=== PATIENT | female | born 1975 | race African-American/Black ===

== ENCOUNTER 2018-03-17 12:48 | Outpatient (CLI) | payer BC, OTHER ==
--- NOTE | 2018-03-21 15:33 | MMO ---
BILATERAL SCREENING MAMMOGRAM: Date: 03/17/18 COMPARISON: 05/24/13, 06/11/14, 09/17/15. HISTORY: Annual screening exam. This patient's mammogram was interpreted with the assistance of computer-aided detection. FINDINGS: Scattered fibroglandular changes of both breasts are present. There is no dominant mass, suspicious c alcification, or other sign of malignancy. IMPRESSION: BIRADS 1: Negative POS: KHOI
== END 2018-03-17 12:49 | disposition home or self-care (01) ==
LOC: SCSMAMMO 12:48
PROVIDERS: ATTEND Student in an Organized Health Care Education/Training Program
DX: Z12.31 Encounter for screening mammogram for malignant neoplasm of breast (principal)
CPT/HCPCS: 77067

== ENCOUNTER 2019-09-21 09:38 | Outpatient (CLI) | payer OTHER ==
--- NOTE | 2019-09-21 09:55 | RAD ---
EXAM: Chest Two Views 09/21/2019 9:53 AM HISTORY: Hypertension COMPARISON: None. FINDINGS: Heart: Moderate cardiomegaly Pulmonary vessels: Normal. Costophrenic angles: Clear. Lungs: No acute airspace consolidation. Pneumothorax: None. Osseous structures:There is scattered degenerative and osteoarthritic change present. No acute fractu re or subluxation demonstrated. Additional findings: None. IMPRESSION: Moderate cardiomegaly
== END 2019-09-21 09:39 | disposition home or self-care (01) ==
LOC: BICRAD 09:38
PROVIDERS: ATTEND Internal Medicine
DX: I11.9 Hypertensive heart disease without heart failure (principal)
CPT/HCPCS: 71046

== ENCOUNTER 2019-09-29 19:30 | Outpatient (CLI) | payer OTHER | END 2019-09-29 19:31 | disposition home or self-care (01) | LOC: SLEEPLAB 19:30 | PROVIDERS: ATTEND Internal Medicine | DX: G47.33 Obstructive sleep apnea (adult) (pediatric) (principal); R53.83 Other fatigue; E66.9 Obesity, unspecified; R06.83 Snoring; I10 Essential (primary) hypertension; E11.9 Type 2 diabetes mellitus without complications; R51 Headache; K21.9 Gastro-esophageal reflux disease without esophagitis | CPT/HCPCS: 95811 ==

== ENCOUNTER 2019-11-24 05:27 | Outpatient (CLI) | payer OTHER ==
[2019-11-24 18:11] LABS: Hemoglobin 10.4 g/dL (12.0-16.0); Mean Corpuscular HGB CONC 31.4 g/dL (32.0-36.0); Mean Corpuscular Volume 70.1 fL (78.0-98.0); Mean Platelet Volume 9.4 fL (7.4-10.4); Platelet Count 325 thou/uL (130-400); RBC Distribution Width 15.4 % (11.5-14.5); Red Blood Cell (RBC) Count 4.74 mill/uL (4.20-5.40); White Blood Cell (WBC) Count 7.9 thou/uL (4.8-10.8)
[2019-11-24 18:22] LABS: BHCG - Serum Negative (NEGATIVE); Pregs Control Background? CLEAR/WHITE (CLR/WHITE); Pregs Control Bar Appear? YES (CONTROL BAR)
[2019-11-24 18:33] LABS: ALT (SGPT) 10 U/L (8-55); AST (SGOT) 17 U/L (5-34); Albumin 4.1 g/dL (3.5-5.0); Alkaline Phosphatase 85 U/L (40-110); Anion Gap 12 mmol/L (10-20); BUN (Urea Nitrogen) 16 mg/dL (7.0-18.7); Bilirubin, Direct 0.2 mg/dL (0.1-0.3); Bilirubin, Total 0.4 mg/dL (0.2-1.2); Calc. Creatinine Clearance 0 mL/min (70-130); Calcium 9.3 mg/dL (7.8-10.44); Carbon Dioxide 30 mmol/L (22-29); Chloride 103 mmol/L (98-107); Estimated GFR-MDRD 62; Globulin 2.8 g/dL (2.4-3.5); Glucose 77 mg/dL (70-105); Potassium 3.5 mmol/L (3.5-5.1); Protein, Total 6.9 g/dL (6.0-8.3); Sodium 141 mmol/L (136-145)
== END 2019-11-24 05:28 | disposition home or self-care (01) ==
LOC: LABBT 05:27
PROVIDERS: ATTEND Student in an Organized Health Care Education/Training Program
DX: Z01.818 Encounter for other preprocedural examination (principal); N92.0 Excessive and frequent menstruation with regular cycle; R10.2 Pelvic and perineal pain
CPT/HCPCS: 80053; 80076; 84703; 85027; 86850; 86900; 86901

== ENCOUNTER 2019-11-27 08:45 | Day surgery (SDC) | payer OTHER ==
[2019-11-24 17:52] VITALS: BMI 46.0
[2019-11-27] MEDS ORDERED: Lidocaine 1% w/Epinephrine 1:100K 20 ML VIAL ONE (09:37)
[2019-11-27] MEDS ORDERED: Bupivacaine PF 0.5% 30 ML VIAL ONE (09:37)
[2019-11-27] MEDS ORDERED: HYDROmorphone 0.5 MG/0.5 ML SYRINGE ONE ×2 (09:44→09:45)
[2019-11-27] MEDS ORDERED: Fentanyl 100 MCG/2 ML VIAL ONE ×3 (09:44→13:06)
[2019-11-27] MEDS ORDERED: Famotidine/PF 20 mg/2ml Vial ONE (10:18)
[2019-11-27] MEDS ORDERED: Gabapentin 300 MG CAP ONE (10:18)
[2019-11-27] MEDS ORDERED: CeleCOXIB 100 MG CAP ONE (10:18)
[2019-11-27] MEDS ORDERED: Midazolam HCl 2 mg/2 ml Vial ONE (10:19)
[2019-11-27] MEDS ORDERED: SUGAMMADEX SODIUM 500 MG/5 ML VIAL ONE (11:18)
[2019-11-27] MEDS ORDERED: Simethicone Chewable 80 MG TAB PO PRN (12:24)
[2019-11-27] MEDS ORDERED: diphenhydrAMINE 25 MG CAP PO PRN (12:24)
[2019-11-27] MEDS ORDERED: Dextrose 50% Abboject 50 ML SYRINGE SLOW IVP PRN (12:24)
[2019-11-27] MEDS ORDERED: Insulin Regular 300 UNITS/3 ML VIAL SC PRN (12:24)
[2019-11-27] MEDS ORDERED: Fentanyl 100 MCG/2 ML VIAL SLOW IVP PRN (12:24)
[2019-11-27] MEDS ORDERED: Zolpidem Tartrate 5 MG TAB PO PRN (12:24)
[2019-11-27] MEDS ORDERED: Ondansetron PF 4 MG/2 ML Vial IVP PRN (12:24)
[2019-11-27] MEDS ORDERED: Promethazine HCl 25 MG/ML VIAL IM PRN (12:24)
[2019-11-27] MEDS ORDERED: HYDROcodone/Acetaminophen 5/325 mg Tablet PO PRN (12:24)
[2019-11-27] MEDS ORDERED: Bisacodyl 10 MG SUPP PR PRN (12:24)
[2019-11-27] MEDS ORDERED: Dextrose 5% in Water 1,000 ML IV PRN (12:24)
[2019-11-27] MEDS ORDERED: Metoprolol Tartrate 5 MG/5 ML VIAL IVP PRN (12:32)
[2019-11-27] MEDS ORDERED: Meperidine HCl/PF 25 MG/ML VIAL SLOW IVP PRN (12:39)
[2019-11-27] MEDS ORDERED: HYDROmorphone 2 MG/ML VIAL SLOW IVP PRN (12:39)
[2019-11-27] MEDS ORDERED: Promethazine HCl 25 MG/ML VIAL SLOW IVP PRN (12:39)
[2019-11-27] MEDS ORDERED: valACYclovir 500 MG TAB PO SCH (12:45)
[2019-11-27] MEDS ORDERED: Rocuronium Bromide 10 MG/ML (10ML VIAL) ONE (14:33)
[2019-11-27] MEDS ORDERED: PROPOFOL 200 MG/20 ML VIAL ONE (14:33)
[2019-11-27] MEDS ORDERED: Dexamethasone 20 MG/5 ML VIAL ONE (14:33)
[2019-11-27] MEDS ORDERED: EPHEDRINE 25 MG/5 ML SYRINGE ONE (14:33)
[2019-11-27] MEDS ORDERED: Lidocaine 1% PF 5 ML VIAL ONE (14:33)
[2019-11-27] MEDS ORDERED: Ondansetron PF 4 MG/2 ML Vial ONE (14:33)
[2019-11-27] MEDS ORDERED: PHENYLEPHRINE-NS 100 MCG/ML 10 ML SYRINGE ONE (14:33)
[2019-11-27] MEDS ORDERED: Ketorolac Tromethamine 30 MG/ML VIAL IVP SCH (18:00)
[2019-11-27] MEDS: Sodium Chloride 0.9% 1,000 ML IV SCH ×2 (18:31→21:01)
[2019-11-27] MEDS: Ketorolac Tromethamine 30 MG/ML VIAL IVP SCH ×2 (18:32→23:35)
[2019-11-27] MEDS: Amlodipine 5 MG TAB PO SCH (20:04)
[2019-11-27] MEDS: HYDROcodone/Acetaminophen 5/325 mg Tablet PO PRN (20:04)
[2019-11-27] MEDS ORDERED: Atorvastatin Calcium 10 MG TAB PO SCH (21:00)
[2019-11-28] MEDS ORDERED: Ibuprofen 800 MG TAB PO SCH (06:00)
[2019-11-28] MEDS: Sodium Chloride 0.9% 1,000 ML IV SCH (06:01)
[2019-11-28 06:19] LABS: Anion Gap 11 mmol/L (10-20); BUN (Urea Nitrogen) 17 mg/dL (7.0-18.7); Calc. Creatinine Clearance 118 mL/min (70-130); Calcium 8.4 mg/dL (7.8-10.44); Carbon Dioxide 24 mmol/L (22-29); Chloride 105 mmol/L (98-107); Estimated GFR-MDRD 57; Glucose 134 mg/dL (70-105); Hemoglobin 9.2 g/dL (12.0-16.0); Mean Corpuscular HGB CONC 29.9 g/dL (32.0-36.0); Mean Corpuscular Hemoglobin 21.2 pg (27.0-31.0); Mean Corpuscular Volume 70.7 fL (78.0-98.0); Mean Platelet Volume 9.2 fL (7.4-10.4); Platelet Count 298 thou/uL (130-400); Potassium 3.9 mmol/L (3.5-5.1); RBC Distribution Width 15.5 % (11.5-14.5); Red Blood Cell (RBC) Count 4.34 mill/uL (4.20-5.40); Sodium 136 mmol/L (136-145); White Blood Cell (WBC) Count 13.1 thou/uL (4.8-10.8)
[2019-11-28] MEDS ORDERED: Ibuprofen 600 MG TAB PO SCH ×2 (08:00→14:00)
[2019-11-28] MEDS ORDERED: metFORMIN 500 MG TAB PO SCH (08:00)
[2019-11-28 08:03] VITALS: BP 148/70; TEMP 98.5
[2019-11-28] MEDS: HYDROcodone/Acetaminophen 5/325 mg Tablet PO PRN (08:33)
[2019-11-28] MEDS ORDERED: Hydrochlorothiazide 25 MG TAB PO SCH (09:00)
[2019-11-28] MEDS ORDERED: Losartan/Hydrochlorothiazide 100 mg/25 mg Tablet PO SCH (09:00)
[2019-11-28] MEDS: Amlodipine 5 MG TAB PO SCH (09:12)
--- NOTE | 2019-11-29 11:51 | OP ---
DATE OF PROCEDURE: 11/27/2019 PREOPERATIVE DIAGNOSES: 1. Menorrhagia. 2. Anemia. 3. Pelvic pain. 4. Fibroids. POSTOPERATIVE DIAGNOSES: 1. Menorrhagia. 2. Anemia. 3. Pelvic pain. 4. Fibroids. 5. Endometriosis. PROCEDURES PERFORMED: Robotic-assisted total laparoscopic hysterectomy and bilateral salpingectomy. ANESTHESIA: General endotracheal. PROPELLANT ASSEMBLER SURGEON: Lorri Davis PA-C ESTIMATED BLOOD LOSS: 30 mL. IVF: 1 L. URINE OUTPUT: 650 mL clear urine. COMPLICATIONS: None. DRAINS: Lock catheter. PATHOLOGY: Uterus, cervix, and bilateral fallopian tubes. FINDINGS: Enlarged 12-week size uterus sounded to 9 cm. Normal-appearing cervix and vagina. 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 The fallopian tubes were normal. Ovaries were normal bilaterally. Small amount of endometriosis in the right side of the pelvis. Excellent hemostasis noted. Ureters were noted bilaterally, dissected out in the retroperitoneum and lateral from the surgical site. DESCRIPTION OF PROCEDURE: The patient was taken to the operating room, where general anesthesia was obtained without difficulty. The patient was prepped and draped in a sterile fashion in dorsal lithotomy position. Lock catheter was placed in the bladder. A speculum was placed in the vagina. Anterior lip of the cervix was grasped with a single-tooth tenaculum. The cervix was then dilated with Nirmal dilators, and the uterus sounded to 9 cm. The FRIEDA manipulator was assembled with 4 cm colpotomizer ring and 8 cm tip. The FRIEDA manipulator was inserted into the uterus. The speculum and tenaculum were removed out of the vagina. Legs were placed in low lithotomy. Balloons were inflated, and attention was turned to the abdomen. A mixture of 0.5% Marcaine plain and 1% lidocaine with epinephrine was infiltrated into the umbilicus, and a 12 mm skin incision was made in the umbilicus. The Veress needle was passed into the abdomen noting an opening pressure of 6 mmHg, and pneumoperitoneum was obtained without difficulty. The Veress needle was removed, and the 12 mm trocar was advanced into the abdomen and confirmed placement with the camera. Trendelenburg was obtained. Right and left lower quadrant 8 mm robotic trocars were placed under direct visualization after infiltrating with anesthetic, and an 11 mm plant attendant or assistant operator port was placed in the right upper quadrant under direct visualization as well. After infiltrating with anesthetic, the robot was then docked. The right robotic arm contained monopolar scissors. Left robotic arm contained a fenestrated bipolar. The surgeon console took control. The right fallopian tube was grasped and elevated. The small amount of endometriosis was noted in the right side of the pelvis. This was not significant, and decision was made to not remove the ovaries. The mesosalpinx was cauterized with the fenestrated and transected with the scissors from lateral to medial. When the medial portion was met, the fallopian tube was clamped across with the fenestrated, cauterized, and transected and tube removed out of the abdomen. The utero-ovarian was cauterized x2 with the fenestrated and incised with the scissors on cautery. The round ligament was also cauterized in the midportion and incised with the scissors. The posterior leaf of the broad ligament was dropped down, tenting up on the peritoneum with the fenestrated down to the level of the uterosacral. The retroperitoneum was dissected off the uterine vessels, and the anterior leaf of the broad ligament was also incised down to the level of the bladder flap. The uterine vessels were skeletonized, and the ureter was identified in the retroperitoneum laterally to the point of crossing underneath the uterine vessel. The bladder flap was then created by tenting up on the vesicouterine peritoneum with the fenestrated and incising with the scissors. The adventitia was dissected off the pubocervical fascia with the scissors as well sharply. Hemostasis was achieved at the bladder pillars with the fenestrated. Attention was turned to the left side. The left fallopian tube was grasped and elevated. The tube was dissected off the supporting tissue with the scissors and achieving hemostasis with the fenestrated. The tube was then incised on the medial portion and removed out of the abdomen. The utero-ovarian was cauterized with the fenestrated, and hemostasis was noted after incising. The round ligament was cauterized and transected as well. The posterior leaf of the broad ligament was incised down to the uterosacral, and the anterior leaf of the broad ligament was incised as well down to the bladder flap. The retroperitoneum was dissected off the uterine vessels, and the pedicle was skeletonized adequately. The ureter was identified in the retroperitoneum and the pelvic sidewall very laterally. Once adequate skeletonization and bladder flap creating was performed, the uterine vessels were cauterized at the level of the internal cervical os. The colpotomy was performed anteriorly and posteriorly, and the vessels were then incised, and colpotomy was completed. The uterus was placed into the vagina, and hemostasis was achieved of the cuff, and the cuff was irrigated. The scissors were traded out for the needle transit mixer driver, and the cuff was then closed with a 2-0 barbed STRATAFIX suture in a running fashion incorporating the posterior peritoneum and vaginal mucosa in each bite and this was run back for a second layer, and closure was excellent, and hemostasis was noted. The bladder was backfilled and noted to be free of any injury. There was some nodularity that was present in the anterior abdominal wall just above the peritoneum. This was documented on the photograph. It was not a part of the bladder on back filling. It was felt likely represent a lipoma of some sort or preperitoneal fat. Low pressure check was performed. Hemostasis was noted to be excellent. The ureters were noted in the sidewall, vermiculating, and all instruments were removed out of the abdomen. The robot was undocked. Pneumoperitoneum was released. The fascia of the camera port was closed with 0 Vicryl in a [id number] fashion. The skin was closed with 4-0 Monocryl in a subcuticular fashion. Dermabond was applied. The vaginal cuff was checked and noted to be hemostatic. All instruments and specimen were removed out of the vagina. The patient tolerated the procedure well. Sponge, lap, and needle counts were correct x2. The patient was taken to recovery room in stable condition. The patient received Ancef 2 g prior to the procedure. Job ID: [id number]
== END 2019-11-28 10:20 | disposition home or self-care (01) ==
LOC: SDC 08:45 → 3SE 12:24 → SDC 11-28 10:20
PROVIDERS: ATTEND Student in an Organized Health Care Education/Training Program
PROC: 0UT74ZZ Resection of Bilateral Fallopian Tubes, Percutaneous Endoscopic Approach (ICD-10-PCS; principal; 2019-11-28)
PROC: 0UT94ZZ Resection of Uterus, Percutaneous Endoscopic Approach (ICD-10-PCS; principal; 2019-11-28)
DX: D25.9 Leiomyoma of uterus, unspecified (principal); N84.0 Polyp of corpus uteri; N72 Inflammatory disease of cervix uteri; D64.9 Anemia, unspecified; I10 Essential (primary) hypertension; E11.9 Type 2 diabetes mellitus without complications; E78.00 Pure hypercholesterolemia, unspecified; G47.30 Sleep apnea, unspecified; Z79.84 Long term (current) use of oral hypoglycemic drugs; Z79.899 Other long term (current) drug therapy; Z88.2 Allergy status to sulfonamides; Z91.018 Allergy to other foods
CPT/HCPCS: 36415; 36416; 80048; 85027; 88307; J0690; J1100; J1170; J1815; J1885; J2001; J2250; J2405; J2704; J3010; S0020; S0028

== ENCOUNTER 2020-04-09 10:41 | Emergency (ER) | payer OTHER ==
[2020-04-09] MEDS ORDERED: Metoclopramide HCl 10 MG/2 ML VIAL ONE (11:11)
[2020-04-09] MEDS ORDERED: Acetaminophen 500 MG TAB ONE (11:11)
[2020-04-09] MEDS ORDERED: diphenhydrAMINE 50 MG/ML VIAL ONE (11:12)
[2020-04-09 11:13] LABS: Hemoglobin 13.1 g/dL (12.0-16.0); Mean Corpuscular HGB CONC 31.3 g/dL (32.0-36.0); Mean Corpuscular Hemoglobin 22.1 pg (27.0-31.0); Mean Corpuscular Volume 70.4 fL (78.0-98.0); Mean Platelet Volume 10.9 fL (7.4-10.4); Platelet Count 319 thou/uL (130-400); RBC Distribution Width 18.1 % (11.5-14.5); Red Blood Cell (RBC) Count 5.92 mill/uL (4.20-5.40); White Blood Cell (WBC) Count 7.6 thou/uL (4.8-10.8)
[2020-04-09 11:14] LABS: #Eosinphils 0.4 thou/uL (0.0-0.7); #Lymphocytes 2.3 thou/uL (1.20-3.40); #Monocytes 0.4 thou/uL (0.11-0.59); #Neutrophils 4.5 thou/uL (1.40-6.50); %Basophils 0.1 % (0.0-1.0); %Eosinophils 5.5 % (0.0-10.0); %Lymphocytes 30.1 % (21.0-51.0); %Monocytes 5.4 % (0.0-10.0); %Neutrophils 58.9 % (42.0-75.0)
[2020-04-09 11:29] LABS: Hypochromia SLIGHT = 6-15 cells (100X) (0-5/hpf); MDiff Complete? YES; Microcytosis MODERATE=15-30 cells (100X) (0-5/hpf); Platelet Morphology Comment Appears Adequate; Polychromasia SLIGHT = 2-3 cells (100X) (0-2/hpf)
[2020-04-09] MEDS ORDERED: Losartan 25 MG TAB PO SCH (11:30)
[2020-04-09] MEDS ORDERED: Hydrochlorothiazide 25 MG TAB PO SCH (11:30)
[2020-04-09 11:49] LABS: ALT (SGPT) 13 U/L (8-55); AST (SGOT) 16 U/L (5-34); Albumin 4.2 g/dL (3.5-5.0); Alkaline Phosphatase 98 U/L (40-110); Anion Gap 10 mmol/L (10-20); BUN (Urea Nitrogen) 16 mg/dL (7.0-18.7); Bilirubin, Total 0.4 mg/dL (0.2-1.2); Calc. Creatinine Clearance 0 mL/min (70-130); Calcium 9.6 mg/dL (7.8-10.44); Carbon Dioxide 30 mmol/L (22-29); Chloride 100 mmol/L (98-107); Estimated GFR-MDRD 63; Globulin 3.5 g/dL (2.4-3.5); Glucose 190 mg/dL (70-105); Protein, Total 7.7 g/dL (6.0-8.3); Sodium 137 mmol/L (136-145)
[2020-04-09 12:04] LABS: Potassium 2.8 mmol/L (3.5-5.1)
[2020-04-09] MEDS ORDERED: Potassium Chloride 20 MEQ TAB ONE (13:14)
--- NOTE | 2020-04-14 11:26 | EKG ---
Test Reason : Blood Pressure : / mmHG Vent. Rate : 087 BPM Atrial Rate : 097 BPM P-R Int : 166 ms QRS Dur : 110 ms QT Int : 392 ms P-R-T Axes : 049 -37 023 degrees QTc Int : 471 ms Sinus rhythm with marked sinus arrhythmia with occasional Premature ventricular complexes Possible Left atrial enlargement Left axis deviation Inferior infarct , age undetermined Possible Anterior infarct , age undetermined Abnormal ECG Confirmed by АЛЕКСАНДР RIOS DO ([id number]), proposal editor JAMES MODI ([id number]) on 04/14/2020 11:25:59 AM Referred By: Confirmed By:АЛЕКСАНДР RIOS DO
== END 2020-04-09 13:57 | disposition home or self-care (01) ==
LOC: ERS 10:41
DX: R51 Headache (principal); E87.6 Hypokalemia; I10 Essential (primary) hypertension; E78.5 Hyperlipidemia, unspecified; E11.9 Type 2 diabetes mellitus without complications; G47.30 Sleep apnea, unspecified; Z79.84 Long term (current) use of oral hypoglycemic drugs; Z79.899 Other long term (current) drug therapy
CPT/HCPCS: 80053; 84484; 85025; 93005; 96365; 96366; 96375; J1200; J2765

== ENCOUNTER 2020-04-15 11:05 | Outpatient (CLI) | payer OTHER ==
--- NOTE | 2020-04-15 12:29 | ULT ---
RENAL ULTRASOUND WITH DUPLEX EVALUATION HISTORY: Uncontrolled hypertension COMPARISON: None FINDINGS: Grayscale, color Doppler and spectral Doppler images were obtained of the kidneys and renal vasculature in addition to the aorta. Right Kidney: Size: 12.4 x 5.1 x 4.9 cm. Abnormality: Normal cortical echotexture. No hydronephrosis. The peak systolic velocity within the right renal artery is 91.6 cm/s. The right renal artery to aort ic ratio is 1.19. Sample resistive index within the right kidney is 0.69. Left Kidney: Size: 13.1 x 6.4 x 5.4 cm. Abnormality: Normal cortical echotexture. No hydronephrosis The peak systolic velocity within the left renal artery is 96.7 cm/s. The left renal artery to aortic ratio is 1.25. Sample resistive index in the left kidney was 0.70. Peak systolic velocity within the aorta was 77.2 cm/s. Urinary bladder: 191.7 cc. No intraluminal mass demonstrated. IMPRESSION: 1. No focal renal lesion or hydronephrosis demonstrated. 2. No sonographic evidence to suggest presence of renal artery stenosis.
--- NOTE | 2020-04-16 13:25 | ULT ---
RENAL ULTRASOUND WITH DUPLEX EVALUATION HISTORY: Uncontrolled hypertension COMPARISON: None FINDINGS: Grayscale, color Doppler and spectral Doppler images were obtained of the kidneys and renal vasculature in addition to the aorta. Right Kidney: Size: 12.4 x 5.1 x 4.9 cm. Abnormality: Normal cortical echotexture. No hydronephrosis. The peak systolic velocity within the right renal artery is 91.6 cm/s. The right renal artery to aort ic ratio is 1.19. Sample resistive index within the right kidney is 0.69. Left Kidney: Size: 13.1 x 6.4 x 5.4 cm. Abnormality: Normal cortical echotexture. No hydronephrosis The peak systolic velocity within the left renal artery is 96.7 cm/s. The left renal artery to aortic ratio is 1.25. Sample resistive index in the left kidney was 0.70. Peak systolic velocity within the aorta was 77.2 cm/s. Urinary bladder: 191.7 cc. No intraluminal mass demonstrated. IMPRESSION: 1. No focal renal lesion or hydronephrosis demonstrated. 2. No sonographic evidence to suggest presence of renal artery stenosis. Transcribed Date/Time: 04/16/2020 1:25 PM
== END 2020-04-15 11:06 | disposition home or self-care (01) ==
LOC: SCSULT 11:05
PROVIDERS: ATTEND Internal Medicine
DX: I10 Essential (primary) hypertension (principal)
CPT/HCPCS: 76770; 93975

== ENCOUNTER 2020-04-21 14:23 | Observation (INO) | payer OTHER ==
[2020-04-21] MEDS ORDERED: Acetaminophen 500 MG TAB ONE (14:43)
[2020-04-21 14:51] LABS: #Basophils 0.1 thou/uL (0.0-0.2); #Lymphocytes 1.3 thou/uL (1.20-3.40); #Monocytes 0.6 thou/uL (0.11-0.59); #Neutrophils 8.8 thou/uL (1.40-6.50); %Basophils 1.2 % (0.0-1.0); %Eosinophils 0.2 % (0.0-10.0); %Lymphocytes 11.8 % (21.0-51.0); %Monocytes 5.9 % (0.0-10.0); %Neutrophils 80.8 % (42.0-75.0); Hemoglobin 12.6 g/dL (12.0-16.0); Mean Corpuscular Volume 71.7 fL (78.0-98.0); Mean Platelet Volume 10.1 fL (7.4-10.4); Platelet Count 255 thou/uL (130-400); RBC Distribution Width 17.5 % (11.5-14.5); Red Blood Cell (RBC) Count 5.47 mill/uL (4.20-5.40); White Blood Cell (WBC) Count 10.8 thou/uL (4.8-10.8)
[2020-04-21 15:13] LABS: ALT (SGPT) 18 U/L (8-55); AST (SGOT) 33 U/L (5-34); Albumin 4.3 g/dL (3.5-5.0); Alkaline Phosphatase 83 U/L (40-110); Anion Gap 13 mmol/L (10-20); BUN (Urea Nitrogen) 16 mg/dL (7.0-18.7); Bilirubin, Total 0.5 mg/dL (0.2-1.2); Calc. Creatinine Clearance 0 mL/min (70-130); Calcium 9.4 mg/dL (7.8-10.44); Carbon Dioxide 29 mmol/L (22-29); Chloride 101 mmol/L (98-107); Estimated GFR-MDRD 58; Globulin 3.9 g/dL (2.4-3.5); Glucose 97 mg/dL (70-105); Potassium 3.4 mmol/L (3.5-5.1); Protein, Total 8.2 g/dL (6.0-8.3); Sodium 140 mmol/L (136-145)
[2020-04-21] MEDS ORDERED: Metoprolol Tartrate 5 MG/5 ML VIAL ONE (15:20)
[2020-04-21] MEDS ORDERED: Nitroglycerin 2% Ointment 1 INCH/1 GM Packet ONE (15:20)
--- NOTE | 2020-04-21 15:38 | RAD ---
PORTABLE CHEST: Date: 04-21-2020 Provided Clinical History: Shortness of breath FINDINGS: Comparison 09-21-2019. Evaluation is limited by patient body habitus. The cardiac silhouette appears enlarged. No focal cons olidation, pleural fluid, or pneumothorax evident. IMPRESSION: No evidence for an acute cardiopulmonary process. POS: CHRISTINA
[2020-04-21] MEDS ORDERED: Ondansetron PF 4 MG/2 ML Vial IVP PRN (16:06)
[2020-04-21] MEDS ORDERED: hydrALAZINE 20 MG/ML VIAL SLOW IVP PRN (16:06)
[2020-04-21] MEDS ORDERED: Calcium Carbonate 500 MG ChewTAB PO PRN (16:06)
[2020-04-21] MEDS ORDERED: Acetaminophen 325 MG TAB PO PRN (16:06)
[2020-04-21] MEDS ORDERED: Guaifenesin DM 100-10/5 ML UDCUP PO PRN (16:06)
[2020-04-21] MEDS ORDERED: Bisacodyl 10 MG SUPP PR PRN (16:06)
[2020-04-21] MEDS ORDERED: Senokot S 8.6-50 MG TAB PO PRN (16:06)
[2020-04-21 17:16] LABS: Bilirubin Negative (Negative); Blood, Urine Negative (Negative); Clarity Clear (Clear); Glucose, Urine (Dipstick) Normal (Negative); Ketone, Urine Negative (Negative); Leukocyte Negative Leu/uL (Negative); Nitrite Negative (Negative); Protein, Urine (Dipstick) 10 mg/dL (Neg-Trace); Specific Gravity, Urine 1.016 (1.002-1.036); Urobilinogen Normal mg/dL (Less than 2)
[2020-04-21 20:32] VITALS: BMI 46.7
[2020-04-21] MEDS ORDERED: Atorvastatin Calcium 10 MG TAB PO SCH (21:00)
[2020-04-21] MEDS ORDERED: Dexamethasone 4 mg/ml Vial SLOW IVP SCH (21:15)
[2020-04-21] MEDS: Amlodipine 5 MG TAB PO SCH (21:26)
[2020-04-21] MEDS: Metoprolol Tartrate 25 MG TAB PO SCH (21:26)
[2020-04-21] MEDS: Nitroglycerin 2% Ointment 1 INCH/1 GM Packet TOP SCH (21:26)
[2020-04-21 22:16] LABS: Troponin I 0.027 ng/mL (< 0.028)
--- NOTE | 2020-04-21 22:18 | HP ---
PRIMARY CARE PHYSICIAN: Dr. Vazquez. CHIEF COMPLAINT: Fever. HISTORY OF PRESENT ILLNESS: The patient is a 45-year-old female with past medical history significant for hypertension, diabetes type 2, and sleep apnea. She presents to the ER today for subjective fever, cough, and generalized pain. She states that she has been having chills at home and muscle aches. No medications have been tried at this time. She is coughing up phlegm which is light yellow and clear in color. Completed today in the ER, lab work, a COVID swab, EKG, and chest x-ray. They administered 1-inch of nitroglycerin, 1 L of fluid, and 1 g of Tylenol. When she first arrived in the ER, her blood pressure was 225/110 and she was tachycardic and tachypneic. The blood pressure was treated with nitroglycerin and oxygen was applied due to hypoxia with a strong suspicion for COVID-19 at this time. No known exposure. PAST MEDICAL HISTORY: Includes hypertension, hyperlipidemia, diabetes type 2, sleep apnea. PAST SURGICAL HISTORY: Includes a cyst removal from her thigh, hysterectomy, laparoscopic surgery for endometriosis. ALLERGIES: ALMOND, SULFA, TRIMETHOPRIM. MEDICATIONS: Amlodipine 5 mg two times a day, losartan and hydrochlorothiazide 100 mg-12.5 mg once a day, metformin 500 mg 3 times a day before meals, pravastatin 40 mg once a day, clonidine 0.1 mg every 6 hours as needed for hypertension, Nexium 40 mg one tab daily, spironolactone 25 mg p.o. daily, vitamin D3 at 1000 units orally daily, iron extended release 325 mg daily. SOCIAL HISTORY: The patient drinks socially. Denies any drug use and no smoking history. FAMILY HISTORY: Mother has CHF and sister had cancer. FAMILY HISTORY: All other review of systems are negative unless noted in HPI. PHYSICAL EXAMINATION: VITAL SIGNS: Blood pressure 121/72, pulse 93, respiratory rate 20, temperature 99 degrees orally, O2 saturation 97% on 2 L. GENERAL: Appears nontoxic, pain-free, alert and oriented. HEENT: Head is atraumatic, normocephalic. Eyes, PERRLA. Extraocular muscles intact. ENT, mucous membranes moist. Sinus, frontal sinus normal. No erythema. No swelling. NECK: No lymphadenopathy. RESPIRATORY: No respiratory distress. Clear to auscultation bilaterally. No wheezing. No rhonchi. No rales. CARDIOVASCULAR: Regular rate and rhythm. No murmurs, no rubs, no gallops. ABDOMEN: Nontender. Bowel sounds present. No distention. No masses. EXTREMITIES: No cyanosis, no clubbing, no edema. NEUROLOGIC: No focal motor deficits. PSYCHIATRIC: Normal affect. Normal behavior. IMAGING DATA: EKG shows sinus tachycardia at 101. Bilateral atrial enlargement with left ventricular hypertrophy. Chest x-ray showed no evidence for acute cardiopulmonary process. LABORATORY DATA: White blood cells 10.8, hemoglobin 12.6, hematocrit 39.2, platelets 255. Sodium 140, potassium 3.4, BUN 16, creatinine 1.2, GFR 58, glucose 97. Lactic acid 1.4. Troponin 0.020. BNP less than 10. Urinalysis did not show any acute urinary tract infection. COVID swab was positive. IMPRESSION AND PLAN: 1. Acute hypoxia with positive COVID screen. Keep patient on oxygen overnight and monitor her O2 saturations closely. We will wean her shortly if she is able to tolerate it and breath more comfortably. Start patient on dexathemasone tonight. We will continue to monitor patient's progress overnight. 2. Hypertension. Blood pressure is currently stable. We will restart home medications and can also treat with p.r.n. antihypertensives as necessary. 3. Gastrointestinal and deep venous thrombosis prophylaxis in place with Protonix for gastrointestinal and Lovenox in place for deep venous thrombosis prophylaxis. 4. The patient wishes to be a full code. The patient has been discussed with Dr. Newman. Job ID: [id number] MTDD
[2020-04-22 01:35] LABS: Troponin I 0.014 ng/mL (< 0.028)
[2020-04-22 04:53] LABS: #Lymphocytes 0.8 thou/uL (1.20-3.40); #Monocytes 0.4 thou/uL (0.11-0.59); #Neutrophils 8.3 thou/uL (1.40-6.50); %Basophils 0.1 % (0.0-1.0); %Eosinophils 0.2 % (0.0-10.0); %Lymphocytes 7.9 % (21.0-51.0); %Monocytes 4.3 % (0.0-10.0); %Neutrophils 87.5 % (42.0-75.0); Hemoglobin 10.9 g/dL (12.0-16.0); Mean Corpuscular HGB CONC 30.7 g/dL (32.0-36.0); Mean Corpuscular Hemoglobin 21.7 pg (27.0-31.0); Mean Corpuscular Volume 70.6 fL (78.0-98.0); Mean Platelet Volume 11.1 fL (7.4-10.4); Platelet Count 270 thou/uL (130-400); RBC Distribution Width 17.4 % (11.5-14.5); Red Blood Cell (RBC) Count 5.01 mill/uL (4.20-5.40); White Blood Cell (WBC) Count 9.4 thou/uL (4.8-10.8)
[2020-04-22] MEDS: Nitroglycerin 2% Ointment 1 INCH/1 GM Packet TOP SCH ×2 (05:08→16:06)
[2020-04-22 05:18] LABS: Anion Gap 12 mmol/L (10-20); BUN (Urea Nitrogen) 14 mg/dL (7.0-18.7); Calc. Creatinine Clearance 125 mL/min (70-130); Calcium 8.9 mg/dL (7.8-10.44); Carbon Dioxide 28 mmol/L (22-29); Chloride 102 mmol/L (98-107); Estimated GFR-MDRD 61; Glucose 170 mg/dL (70-105); Potassium 3.7 mmol/L (3.5-5.1); Sodium 138 mmol/L (136-145)
[2020-04-22] MEDS ORDERED: metFORMIN 500 MG TAB PO SCH (08:00)
[2020-04-22] MEDS: Metoprolol Tartrate 25 MG TAB PO SCH (08:57)
[2020-04-22] MEDS: Amlodipine 5 MG TAB PO SCH (08:57)
[2020-04-22] MEDS ORDERED: Dexamethasone 4 mg/ml Vial SLOW IVP SCH (09:00)
[2020-04-22] MEDS ORDERED: Enoxaparin Sodium 40 MG/0.4 ML SYRINGE SC SCH (09:00)
[2020-04-22] MEDS ORDERED: Losartan/Hydrochlorothiazide 100 mg/25 mg Tablet PO SCH (09:00)
[2020-04-22 13:30] VITALS: BP 132/65; TEMP 98.3
--- NOTE | 2020-04-22 15:35 | DIS ---
DATE OF ADMISSION: 04/21/2020 DATE OF DISCHARGE: 04/22/2020 DISCHARGE DISPOSITION: To home. PRIMARY DISCHARGE DIAGNOSIS: COVID-19 pneumonia. SECONDARY DISCHARGE DIAGNOSES: 1. Hypertension. 2. Dyslipidemia. 3. Diabetes mellitus, type 2. 4. Morbid obesity with sleep apnea. PROCEDURES DONE DURING HOSPITALIZATION: The patient has had chest x-ray done, which showed no evidence of acute cardiopulmonary process. Blood cultures x2, no growth. White count of 9, H and H of 10 and 35, platelet count 270 with 87% neutrophils, 7.9% lymphocytes. COVID-19 PCR was positive. UA showed no evidence of infection. BUN 14, creatinine 1.1. Troponin x3 negative. Albumin is 4.3. BNP was less than 10. DISCHARGE MEDICATIONS: 1. Norvasc 10 mg daily. 2. Vitamin D3 of 5000 units p.o. daily. 3. Clonidine 0.1 mg twice daily p.r.n. 4. Ferrous sulfate 325 mg p.o. daily. 5. Losartan with hydrochlorothiazide 100/25 mg one tablet daily. 6. Metformin 500 mg p.o. 3 times daily. 7. Pravachol 40 mg p.o. at bedtime. 8. Spironolactone 75 mg p.o. daily. 9. Albuterol inhaler q.6 hourly p.r.n. 10. Eliquis 2.5 mg twice daily for a total of 15 days to prevent thrombotic complications with COVID-19 in view of multiple risk factors. 11. Dexamethasone 6 mg p.o. daily for 9 days. 12. Lopressor 25 mg twice daily. 13. Protonix 40 mg daily. ALLERGIES: TO SULFA, TRIMETHOPRIM, AND ALSO ALMOND. DISCHARGE PLAN: The patient to follow up with Dr. Anastasia Vazquez in 3 days. BRIEF COURSE DURING HOSPITALIZATION: The patient initially came to ER with complaints of shortness of breath and fever. The patient had a rapid COVID-19 PCR swab drawn in the ER, which came back positive. Also, her initial blood pressures were elevated, which promptly came down with nitroglycerin transdermal patch. The patient is 289 pounds with a BMI of 46. She was requiring oxygen on arrival. The patient likely will be discharged home with possible home O2 of 2 L by nasal cannula. She is ambulating and eating well. She has been placed on steroids along with Eliquis. She is not a candidate for remdesivir as of now. The patient has been counseled to quarantine herself at home for the next 10 to 12 days. She is otherwise hemodynamically stable and will be shortly discharged home. Please note, I have seen and examined the patient on the day of discharge. Job ID: [id number]
--- NOTE | 2020-04-30 16:30 | EKG ---
Test Reason : Blood Pressure : / mmHG Vent. Rate : 101 BPM Atrial Rate : 101 BPM P-R Int : 158 ms QRS Dur : 110 ms QT Int : 352 ms P-R-T Axes : 045 -40 030 degrees QTc Int : 456 ms Sinus tachycardia Left atrial enlargement Possible Anterior infarct , age undetermined Left ventricular hypertrophy Abnormal ECG Confirmed by NORMAN SANTOYO, ALESHA Nesbitt ([id number]), film and video editor RODO WILLOUGHBY ([id number]) on 04/30/2020 4:29:29 PM Referred By: Confirmed By:ALESHA AUSTIN MD
== END 2020-04-22 16:30 | disposition home or self-care (01) ==
LOC: ERS 14:23 → 2SW 16:07
PROVIDERS: ADMIT Internal Medicine; ATTEND Internal Medicine
DX: U07.1 COVID-19 (principal); J12.89 Other viral pneumonia; I10 Essential (primary) hypertension; E11.9 Type 2 diabetes mellitus without complications; G47.30 Sleep apnea, unspecified; E78.5 Hyperlipidemia, unspecified; E66.01 Morbid (severe) obesity due to excess calories; Z68.42 Body mass index [BMI] 45.0-49.9, adult; Z79.84 Long term (current) use of oral hypoglycemic drugs; Z79.899 Other long term (current) drug therapy; Z88.1 Allergy status to other antibiotic agents; Z88.2 Allergy status to sulfonamides; Z91.018 Allergy to other foods
CPT/HCPCS: 36415; 71045; 80048; 80053; 81003; 83605; 83880; 84484; 85025; 87040; 93005; 94760; 96360; 96361; 96372; 96374; 96376; G0378; J1100; J1650; U0002

== ENCOUNTER 2021-09-02 17:24 | Outpatient (CLI) | payer OTHER ==
[2021-09-03 11:08] LABS: SARS-CoV-2 PCR by NAA Not Detected (NotDetected)
== END 2021-09-02 17:25 | disposition home or self-care (01) ==
LOC: LABBT 17:24
PROVIDERS: ATTEND Orthopaedic Surgery Hand Surgery
DX: Z01.812 Encounter for preprocedural laboratory examination (principal); G56.02 Carpal tunnel syndrome, left upper limb; Z20.822 Contact with and (suspected) exposure to COVID-19
CPT/HCPCS: U0003; U0005

== ENCOUNTER 2021-09-05 08:57 | Day surgery (SDC) | payer OTHER ==
[2021-09-03 14:56] VITALS: BMI 49.8
[2021-09-05] MEDS ORDERED: ceFAZolin 2 GM/DEX 5% 100 ML BAG ONE (09:40)
[2021-09-05] MEDS ORDERED: Fentanyl 100 MCG/2 ML VIAL ONE (10:45)
[2021-09-05] MEDS ORDERED: Midazolam HCl 2 mg/2 ml Vial ONE (10:45)
[2021-09-05] MEDS ORDERED: Bacitracin Zinc Ointment 30 gm TUBE ONE (10:54)
[2021-09-05] MEDS ORDERED: ePHEDrine 50 MG/ML VIAL ONE (11:18)
[2021-09-05] MEDS ORDERED: PROPOFOL 200 MG/20 ML VIAL ONE (11:18)
[2021-09-05] MEDS ORDERED: Lidocaine 1% PF 5 ML VIAL ONE (11:18)
[2021-09-05] MEDS ORDERED: Ondansetron PF 4 MG/2 ML Vial ONE (11:18)
[2021-09-05] MEDS ORDERED: PHENYLEPHRINE-NS 100 MCG/ML 10 ML SYRINGE ONE (11:18)
[2021-09-05] MEDS ORDERED: Ketorolac Tromethamine 30 MG/ML VIAL ONE (11:18)
[2021-09-05] MEDS ORDERED: Succinylcholine 200 MG/10 ml SYRINGE FS ONE (11:18)
== END 2021-09-05 15:27 | disposition home or self-care (01) ==
LOC: SDC 08:57
PROVIDERS: ATTEND Orthopaedic Surgery Hand Surgery
PROC: 01N50ZZ Release Median Nerve, Open Approach (ICD-10-PCS; principal; 2021-09-05)
DX: G56.02 Carpal tunnel syndrome, left upper limb (principal); I10 Essential (primary) hypertension; E11.9 Type 2 diabetes mellitus without complications; Z88.1 Allergy status to other antibiotic agents; Z88.2 Allergy status to sulfonamides; Z91.018 Allergy to other foods; Z90.710 Acquired absence of both cervix and uterus; Z79.84 Long term (current) use of oral hypoglycemic drugs; Z79.899 Other long term (current) drug therapy
CPT/HCPCS: J1885; J2250; J2405; J2704; J3010; J3490

== ENCOUNTER 2023-04-21 14:20 | Outpatient (CLI) | payer OTHER | END 2023-04-21 14:21 | disposition home or self-care (01) | LOC: LABBT 14:20 | PROVIDERS: ATTEND Orthopaedic Surgery | DX: Z01.810 Encounter for preprocedural cardiovascular examination (principal); S76.111A Strain of right quadriceps muscle, fascia and tendon, initial encounter | CPT/HCPCS: 93005; 93010 ==

== ENCOUNTER 2023-04-22 12:12 | Outpatient (CLI) | payer OTHER | END 2023-04-22 12:13 | disposition home or self-care (01) | LOC: MRI 12:12 | PROVIDERS: ATTEND Orthopaedic Surgery | DX: S76.111A Strain of right quadriceps muscle, fascia and tendon, initial encounter (principal); S83.241A Other tear of medial meniscus, current injury, right knee, initial encounter; S83.281A Other tear of lateral meniscus, current injury, right knee, initial encounter; M25.461 Effusion, right knee; M71.21 Synovial cyst of popliteal space [Baker], right knee ==

== ENCOUNTER 2023-04-27 06:51 | Day surgery (SDC) | payer OTHER ==
[2023-04-21 14:56] VITALS: BMI 47.6
[2023-04-27] MEDS ORDERED: Ropivacaine 0.5% HCl/PF (150 MG/30 ML VIAL) ONE (07:44)
[2023-04-27] MEDS ORDERED: Midazolam HCl 2 mg/2 ml Vial ONE (07:44)
[2023-04-27] MEDS ORDERED: fentaNYL 50 mcg/mL 1 mL Vial ONE ×2 (07:44→12:35)
[2023-04-27] MEDS ORDERED: Famotidine/PF 20 mg/2ml Vial ONE (09:06)
[2023-04-27] MEDS ORDERED: CEFAZOLIN 2 GM VIAL ONE (09:12)
[2023-04-27] MEDS ORDERED: Sodium Chloride 0.9% 100 ML ONE (09:12)
[2023-04-27] MEDS ORDERED: fentaNYL PF 100 MCG/2 ML SYRINGE ONE (09:57)
[2023-04-27] MEDS ORDERED: Dexamethasone 20 MG/5 ML VIAL ONE (10:26)
[2023-04-27] MEDS ORDERED: Rocuronium Bromide 10 MG/ML (10ML VIAL) ONE (10:26)
[2023-04-27] MEDS ORDERED: PROPOFOL 200 MG/20 ML VIAL ONE (10:26)
[2023-04-27] MEDS ORDERED: Succinylcholine 200 MG/10 ml SYRINGE FS ONE (10:26)
[2023-04-27] MEDS ORDERED: Lidocaine 1% PF 5 ML VIAL ONE (10:26)
[2023-04-27] MEDS ORDERED: Ondansetron PF 4 MG/2 ML Vial ONE (10:26)
[2023-04-27] MEDS ORDERED: SUGAMMADEX SODIUM 200 MG/2 ML VIAL ONE ×2 (11:27→11:39)
== END 2023-04-27 14:30 | disposition home or self-care (01) ==
LOC: SDC 06:51
PROVIDERS: ATTEND Orthopaedic Surgery
PROC: 0LQL0ZZ Repair Right Upper Leg Tendon, Open Approach (ICD-10-PCS; principal; 2023-04-27)
DX: S76.111A Strain of right quadriceps muscle, fascia and tendon, initial encounter (principal); I10 Essential (primary) hypertension; E11.9 Type 2 diabetes mellitus without complications; E78.5 Hyperlipidemia, unspecified; Z90.710 Acquired absence of both cervix and uterus; Z88.2 Allergy status to sulfonamides; Z91.018 Allergy to other foods; Z79.84 Long term (current) use of oral hypoglycemic drugs; Z79.899 Other long term (current) drug therapy; X50.1XXA Overexertion from prolonged static or awkward postures, initial encounter
CPT/HCPCS: C1713; J1100; J2250; J2405; J2704; J2795; J3010; J3490; L1830; S0028

== ENCOUNTER 2023-09-07 15:03 | Outpatient (CLI) | payer OTHER | END 2023-09-07 15:04 | disposition home or self-care (01) | LOC: BICRAD 15:03 | PROVIDERS: ATTEND Internal Medicine | DX: I10 Essential (primary) hypertension (principal); R06.00 Dyspnea, unspecified | CPT/HCPCS: 71046 ==

== ENCOUNTER 2023-09-15 11:02 | Outpatient (CLI) | payer OTHER | END 2023-09-15 11:03 | disposition home or self-care (01) | LOC: NM 11:02 | PROVIDERS: ATTEND Internal Medicine | DX: R09.1 Pleurisy (principal) | CPT/HCPCS: 71046; 78451; A9540 ==

== ENCOUNTER 2024-12-11 06:06 | Day surgery (SDC) | payer OTHER ==
[2024-12-08 11:12] VITALS: BMI 48.6
[2024-12-11] MEDS ORDERED: PROPOFOL 40 ML ONE (06:59)
[2024-12-11] MEDS ORDERED: Lidocaine 1% PF 5 ML VIAL ONE (07:00)
== END 2024-12-11 09:05 | disposition home or self-care (01) ==
LOC: SDC 06:06
PROVIDERS: ATTEND Internal Medicine Gastroenterology
PROC: 0DJD8ZZ Inspection of Lower Intestinal Tract, Via Natural or Artificial Opening Endoscopic (ICD-10-PCS; principal; 2024-12-11)
DX: K57.30 Diverticulosis of large intestine without perforation or abscess without bleeding (principal); K21.9 Gastro-esophageal reflux disease without esophagitis; I12.9 Hypertensive chronic kidney disease with stage 1 through stage 4 chronic kidney disease, or unspecified chronic kidney disease; N18.30 Chronic kidney disease, stage 3 unspecified; E11.22 Type 2 diabetes mellitus with diabetic chronic kidney disease; E78.5 Hyperlipidemia, unspecified; F32.A Depression, unspecified; G43.909 Migraine, unspecified, not intractable, without status migrainosus; Z86.0101 Personal history of adenomatous and serrated colon polyps; Z90.710 Acquired absence of both cervix and uterus; Z88.2 Allergy status to sulfonamides; Z91.018 Allergy to other foods; Z79.84 Long term (current) use of oral hypoglycemic drugs; Z79.899 Other long term (current) drug therapy
CPT/HCPCS: J2704